=== PATIENT | female | born 1950 | race Caucasian/White ===

== ENCOUNTER 2018-01-09 15:31 | Emergency (ER) | payer MEDICARE, OTHER ==
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
[2018-01-09] MEDS ORDERED: 0.9 % SODIUM CHLORIDE 1000ML 1,000 ML IV SCH (15:45)
[2018-01-09 16:00] LABS: BASO % 0.4 % (0-6); EOS % 4.1 % (0-6); GRAN % 62.7 % (47-80); HEMATOCRIT 42.1 % (35.0-47.0); LYMPH % 22.8 % (16-45); MEAN CELL VOLUME 95.5 fl (81-97); MEAN CORPUSCULAR HEMOGLOBIN 31.7 pg (27-33); MEAN CORPUSCULAR HGB CONC 33.3 g/dl (32-36); MEAN PLATELET VOLUME 9.7 fl (7.4-10.4); PLATELET COUNT 257 K/uL (130-400); RED BLOOD COUNT 4.41 M/uL (3.80-5.40); WHITE BLOOD COUNT W/O DIFF 8.3 K/uL (4.2-12.2)
[2018-01-09 16:20] LABS: ALB/GLOB RATIO 1.4 (1.1-1.8); ALKALINE PHOSPHATASE 107 U/L (35-104); ALT/SGPT 17 U/L (<33); AST/SGOT 19 U/L (10.0-35.0); BLOOD UREA NITROGEN 16 mg/dL (8-23); CREATININE 0.8 mg/dL (0.5-0.9); EST GLOMERULAR FILTRATION RATE > 60 mL/min; GLUCOSE,RANDOM 99 mg/dL (74-109); TOTAL PROTEIN 6.8 g/dL (6.6-8.7)
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
== END 2018-01-09 17:35 | disposition home or self-care (01) ==
LOC: ER 15:31
DX: S20.219A Contusion of unspecified front wall of thorax, initial encounter (principal); V43.62XA Car passenger injured in collision with other type car in traffic accident, initial encounter; Y92.488 Other paved roadways as the place of occurrence of the external cause
CPT/HCPCS: 99283; 99284; 85025; 80053; 71250; 74177; Q9967